=== PATIENT | female | born 1985 | race Caucasian/White ===

== ENCOUNTER 2017-12-26 22:08 | Emergency (ER) | payer OTHER ==
[2017-12-27 05:10] VITALS: BP 100/57; PULSE 82; O2SAT 100
--- NOTE | 2017-12-27 08:57 | OBHP ---
Datetime: 12/26/2017 11:30 IP Adm Impression: , intrauterine ; No Active Labor IP Admit Plan: Discharge home Admit Comment, IP Provider: 32 y/o Kazakh speaking female at 39 weeks GA w/ c/o suprapubic pain 4/10 in severity. She denies nausea, vomiting, vaginal bleeding, VFL. She is visiting from [facility], and has been in the [place] for 3 [place], and does not have any records with her. PMD: unknown pmhx:none OBGYN hx: , 1 miscarriage, 3 at term. Patient unsure when LMP was. past surgical hx: none social hx: denies etoh, tobacco, recreational drug use home meds: none Allergies: none O: Afebrile Heart: RRR Chest: CTA B/L Abd: Soft, NT ,BS- present FHR: 140 Grade I [place]: irregular SVE: 0 cm cervical dilation Assessment: 32 y/o at 39.1 wk intrauterine Patient is not in active labor, cervix closed, no vaginal bleeding or fluid loss. Plan: Monitor FHR PO fluids; patient refused IV fluids Patients sx improved Patient advised of ER precautions: monitor for regular contractions, vaginal bleeding, fluid loss, decreased movement, fevers, severe headache Patient given clinic information and advised to follow up d/c to home Gali Greene, PGY I Addendum: I saw examined patient up presentation. No evidence of labor at this time. heart tracing cat egory 1. Patient discharged home with labor precautions. Pelvic Type - PN: Adequate Extremities - PN: Normal Abdomen - PN: Normal Back - PN: Not Done Breast - PN: Not Done Lungs - PN: Normal Heart - PN: Normal Thyroid - PN: Normal Neurologic - PN: Normal HEENT - PN: Normal General - PN: Normal Weight - Estimated: unknown FHR - Baseline A Provider: 140 Gestation - Est Wks by US: 39.1 Vital Signs Provider: Reviewed; Within Normal Limits IP Chief Complaint: Maternal discomfort NICHD Variability Prov Fetus A: Moderate 6-25bpm NICHD Accel Fetus A IP Provider: 15X15 FHR Category Provider Fetus A: Category I NICHD Decel Fetus A IP Provider: None Dilatation, Provider: 0 Station, Provider: -4 Genitourinary Exam: Normal DTRs - PN: Not Done
== END 2017-12-27 00:05 | disposition home or self-care (01) ==
LOC: H.EROB2 22:08
DX: O47.1 False labor at or after 37 completed weeks of gestation (principal); O26.93 Pregnancy related conditions, unspecified, third trimester; R10.2 Pelvic and perineal pain; Z3A.39 39 weeks gestation of pregnancy

== ENCOUNTER 2018-01-04 11:20 | Inpatient (IN) | payer MEDICAID ==
[2018-01-04 13:11] VITALS: BMI 26.2
[2018-01-04 14:02] LABS: BASO % 0.3 % (0.0-2.0); EOS % 0.6 % (0.0-4.0); HEMOGLOBIN 13.4 g/dL (12.0-16.0); LYMPH # 1.4 K/uL (1.0-4.3); LYMPH % 18.5 % (20.0-40.0); MEAN CELL VOLUME 94.6 fl (81.0-99.0); MEAN CORPUSCULAR HEMOGLOBIN 32.6 pg (27.0-31.0); MEAN CORPUSCULAR HGB CONC 34.5 g/dL (33.0-37.0); MEAN PLATELET VOLUME 8.1 fl (7.2-11.7); MONO # 0.5 K/uL (0.0-0.8); MONO % 7.4 % (0.0-10.0); NEUT # 5.4 K/uL (1.8-7.0); NEUT % 73.2 % (50.0-75.0); RBC 4.1 Mil/uL (3.80-5.20); RED CELL DISTRIBUTION WIDTH 12.7 % (11.5-14.5); WHITE BLOOD COUNT 7.4 K/uL (4.8-10.8)
[2018-01-04] MEDS ORDERED: Lactated Ringer's 1,000 ML IV ONE (14:17)
[2018-01-04] MEDS ORDERED: Lactated Ringer's 1,000 ML IV SCH (14:30)
[2018-01-04] MEDS ORDERED: Oxytocin 30 UNIT 30 UNITS/500 ML BAG IV ONE (14:31)
--- NOTE | 2018-01-04 14:37 | OBADHP ---
Datetime: 01/04/2018 13:07 Admit Comment, IP Provider: 32 y/o , 38.2 wks based on LMP of 04/11/18 and OCTAVIO of 01/16/18, prese nts to [facility] complaining of increasing abdominal contractions. Patient came from [facility] 1 month ago. She came to [facility] on 12/26/17 when cervix was closed. Patient reports increasing contractions since 9PM yes terday, every 10 minutes, with pressur and pain. Reports scant brownish/red vaginal bleeding this mor naga which stopped. Denies any LOF. Endorses good movements. Last sexual activity 1 month ago. Care: In [facility], Has incomplete records. PMHx: Denies PSHx: Denies Allergies: Denies F/H: Mother-HTN SocialHx: Denies alcohol/tobacco/drugs PE General: Mild distress Chest: RRR, S1S2 present, No murmur Lungs: CTA B/L, good air movement ABdomen: Gravid, Nontender Ext: No pedal edema, calf tenderness SVE: 4/60%/-3 A/P: 32 y/o , 38.2 wks based on LMP of 04/11/18 and OCTAVIO of 01/16/18, presents to [facility] complaini ng of increasing abdominal contractions. - Latent stage of labor - Cervix 4cm/60/-3 - EFM: NST reactive, as above - [place]: contractions Q5 mins - CBC, CMP, HIV, RPR, HbsAg, and GBS culture - Bedside US for dating, presentation and placenta - Recheck in 1 hr Dominick Ramesh, PGY1 OB Hospitalist on-call. Pt was seen and translating machine was used for Hx. will observe labor p rogress; check labs; if discharged home f/u 1w At 14:05pm I re-examined : Active labor 6cm/80%/-1 cephalic admit to L_D; anticiapte Sono 3100g; cpe; fundal placenta Pelvic Type - PN: Adequate Extremities - PN: Normal Abdomen - PN: Normal Lungs - PN: Normal Heart - PN: Normal General - PN: Normal Presentation-Admit: Vertex FHR - Baseline A Provider: 140 Membranes, Provider: Sander Comments, ACOG Physical Exam: General: Mild distress Chest: RRR, S1S2 present, No murmur Lungs: CTA B/L, good air movement ABdomen: Gravid, Nontender Ext: No pedal edema, calf tenderness SVE: 4/60%/-3 Neuro: AAO x3 Pool Provider: Negative Vital Signs Provider: Reviewed; Within Normal Limits IP Chief Complaint: Uterine contractions; Maternal discomfort NICHD Variability Prov Fetus A: Moderate 6-25bpm NICHD Accel Fetus A IP Provider: 15X15 FHR Category Provider Fetus A: Category I NICHD Decel Fetus A IP Provider: None Dilatation, Provider: 4 Effacement, Provider: 60 Station, Provider: -3 Genitourinary Exam: Normal EGA AdmitDate IP: 38.2 IP Adm Impression: Term, intrauterine ; Intact Membranes IP Admit Plan: Observation/Evaluation Datetime: 12/26/2017 11:30 Back - PN: Not Done Breast - PN: Not Done Thyroid - PN: Normal Neurologic - PN: Normal HEENT - PN: Normal Weight - Estimated: unknown Gestation - Est Wks by US: 39.1 DTRs - PN: Not Done
--- NOTE | 2018-01-04 14:43 | US ---
Date of service: 01/04/2018 PROCEDURE: OB Pelvic Ultrasound HISTORY: 38, wks Real-time transabdominal ultrasound examination of the 3rd trimester fetus was performed. Exam is limited for anatomy and is only being performed for presentation, weight, and placental location as per the referring physician. COMPARISON: None available. FINDINGS: UTERUS: Gestational sac: Single live intrauterine gestation. Heart rate: 159 bpm. age (Ultrasound estimated): 37 weeks and Sol-gestational hemorrhage: 3 days Date of delivery (Ultrasound estimated) : 01/22/2018 CERVIX: Measures 3.7 cm. Long and closed. No cervical abnormality seen. Right and left ovary were not adequately identified on the images presented. RIGHT OVARY: Not seen. LEFT OVARY: Not seen. FREE FLUID: No free-fluid. OTHER FINDINGS: BPD is 92 millimeters, head circumference is 327 millimeters, abdominal circumference is 330 millimeters, femur length is 74 millimeters. Estimated weight is 3173 grams. Placenta is fundal in location without placenta previa. Cephalic presentation is noted. IMPRESSION: Single live intrauterine gestation with an estimated gestational age of 37 weeks and 3 days based on this ultrasound exam. Estimated date of delivery is 01/22/2018. Please see above. Exam was only performed for limited evaluation as per the referring physician.
[2018-01-04] MEDS ORDERED: OXYTOCIN/0.9 % NS 20 UNIT/1,000 ML BAG IV SCH ×2 (14:45→18:00)
[2018-01-04] MEDS ORDERED: Oxycodone/Acetaminophen 5/325 mg Tab PO PRN ×2 (15:53→18:00)
[2018-01-04] MEDS ORDERED: Benzocaine/Menthol SPRAY TOP PRN ×2 (15:53→18:00)
--- NOTE | 2018-01-04 19:22 | OBDS ---
DELIVERY PERSONNEL Delivery Doctor: Dominik Carrion DO Billing Control Clerk: Nori Villatoro RN Resident: Dr. rivera MATERNAL INFORMATION Delivery Anesthesia: None Medications in Delivery: pitocin 30units in 500ml LR Estimated Blood Loss (ml): 100 Placenta Cultured: No Maternal Complications: None Provider Comments: of live female with 9 at 1 min and 5 mins. Infant was crying spontaneously and bulb suctioned and placed on mother for skin to skin. Umbilical cord blood colleceted and sent. Placenta delivered intact spontansously at 15:42. Uetrus firm and appropriately hemostatic without complications. EBL 200cc Patient and baby remains stable Findings discussed with Dr. Sheyla Rivera, PGY1 LABOR SUMMARY EDC: 01/16/2018 00:00 No. Babies in Womb: 1 Attempted: No Labor Anesthesia: None LABOR INFORMATION Reason for Induction: Not Applicable Onset of Labor: 01/03/2018 22:00 Complete Dilatation: 01/04/2018 15:10 Oxytocin: N/A Group B Beta Strep: Not Done Antibiotics # of Doses: n/a Antibiotics Time of Last Dose: n/a Steroids Given: None Reason Steroids Not Administered: Not Applicable MEMBRANES Membranes Rupture Method: Spontaneous Rupture of Membranes: 01/04/2018 15:10 Length of Rupture (hrs): 0.33 Amniotic Fluid Color: Clear Amniotic Fluid Amount: Moderate Amniotic Fluid Odor: Normal STAGES OF LABOR Stage 1 hrs: 17 Stage 1 min: 10 Stage 2 hrs: 0 Stage 2 min: 20 Stage 3 hrs: 0 Stage 3 min: 12 Total Time in Labor hrs: 17 Total Time in Labor min: 42 VAGINAL DELIVERY Episiotomy: None Laceration Extension: N/A Laceration Type: None Laceration Repair: Not Applicable Initial Vag Sponge Count: 5 laps with ring, 10 sponges Final Vag Sponge Count: 5 laps with ring, 10 sponges Initial Vag Sharps Count: 0 Final Vag Sharps Count: 0 Sponge Count Correct: Yes Sharps Count Correct: Yes Count Comment: count correct and acknowledged by MD BABY A INFORMATION Infant Delivery Date/Time: 01/04/2018 15:30 Method of Delivery: Vaginal Born in Route : No : N/A Forceps: N/A Vacuum Extraction: N/A Shoulder Dystocia : No SHOULDER DYSTOCIA BABY A Delivery Date/Time: 01/04/2018 15:30 PRESENTATION/POSITION BABY A Presentation: Cephalic Cephalic Presentation: Vertex Breech Presentation: N/A PLACENTA INFORMATION BABY A Placenta Delivery Time : 01/04/2018 15:42 Placenta Method of Delivery: Spontaneous Placenta Status: Delivered SCORES BABY A Heart Rate 1 min: >100 bpm Resp Effort 1 min: Good Cry Reflex Irritability 1 min: Cough or Sneeze or Pulls Away Muscle Tone 1 min: Active Motion Color 1 min: Body [place], Extremities Blue Resuscitation Effort 1 min: N/A SCORE 1 MIN: 9 Heart Rate 5 min: >100 bpm Resp Effort 5 min: Good Cry Reflex Irritability 5 min: Cough or Sneeze or Pulls Away Muscle Tone 5 min: Active Motion Color 5 min: Body [place], Extremities Blue Resuscitation Effort 5 min: N/A SCORE 5 MIN: 9 INFANT INFORMATION BABY A Gestational Age at Delivery: 38.2 Gestational Status: Term Outcome : Liveborn Condition : Stable Sex: Female IDENTIFICATION/MEDS BABY A ID Band Number: [id number] Vitamin K Given : Not Given Erythromycin Given: Not Given WEIGHT/LENGTH BABY A Infant Birthweight (gms): 2995 Infant Weight (lb): 6 Infant Weight (oz): 10 CORD INFORMATION BABY A No. Cord Vessels: 3 Nuchal Cord : N/A Cord Blood Taken: Yes Suction: None ASSESSMENT BABY A Infant Complications: None Physical Findings at Delivery: Within Normal Limits Infant Respirations: Appears Normal Shearing Machine Feeder/ALS Called : No Care By: Dr. Delatorre Transferred To: Remains with Mother
--- NOTE | 2018-01-04 19:23 | OBDS ---
DELIVERY PERSONNEL Delivery Doctor: Dominik Carrion DO Dust Collector: Nori Villatoro RN Resident: Dr. rivera MATERNAL INFORMATION Delivery Anesthesia: None Medications in Delivery: pitocin 30units in 500ml LR Estimated Blood Loss (ml): 100 Placenta Cultured: No Maternal Complications: None Provider Comments: of live female with 9 at 1 min and 5 mins. Infant was crying spontaneously and bulb suctioned and placed on mother for skin to skin. Umbilical cord blood colleceted and sent. Placenta delivered intact spontansously at 15:42. Uetrus firm and appropriately hemostatic without complications. EBL 200cc Patient and baby remains stable Findings discussed with Dr. Sheyla Rivera, PGY1 Ob hospitaliston-call. I attended [facility] LABOR SUMMARY EDC: 01/16/2018 00:00 EDC: 01/02/2018 00:00 No. Babies in Womb: 1 Attempted: No Labor Anesthesia: None LABOR INFORMATION Reason for Induction: Not Applicable Onset of Labor: 01/03/2018 22:00 Onset of Labor: 01/03/2018 22:00 Complete Dilatation: 01/04/2018 15:10 Oxytocin: N/A Group B Beta Strep: Not Done Antibiotics # of Doses: n/a Antibiotics Time of Last Dose: n/a Steroids Given: None Reason Steroids Not Administered: Not Applicable MEMBRANES Membranes Rupture Method: Spontaneous Rupture of Membranes: 01/04/2018 15:10 Length of Rupture (hrs): 0.33 Amniotic Fluid Color: Clear Amniotic Fluid Amount: Moderate Amniotic Fluid Odor: Normal STAGES OF LABOR Stage 1 hrs: 17 Stage 1 hrs: 17 Stage 1 min: 10 Stage 1 min: 10 Stage 2 hrs: 0 Stage 2 min: 20 Stage 3 hrs: 0 Stage 3 min: 12 Total Time in Labor hrs: 17 Total Time in Labor hrs: 17 Total Time in Labor min: 42 Total Time in Labor min: 42 VAGINAL DELIVERY Episiotomy: None Laceration Extension: N/A Laceration Type: None Laceration Repair: Not Applicable Initial Vag Sponge Count: 5 laps with ring, 10 sponges Final Vag Sponge Count: 5 laps with ring, 10 sponges Initial Vag Sharps Count: 0 Final Vag Sharps Count: 0 Sponge Count Correct: Yes Sharps Count Correct: Yes Count Comment: count correct and acknowledged by MD BABY A INFORMATION Infant Delivery Date/Time: 01/04/2018 15:30 Method of Delivery: Vaginal Born in Route : No : N/A Forceps: N/A Vacuum Extraction: N/A Shoulder Dystocia : No SHOULDER DYSTOCIA BABY A Delivery Date/Time: 01/04/2018 15:30 PRESENTATION/POSITION BABY A Presentation: Cephalic Presentation: Cephalic Presentation: Cephalic Cephalic Presentation: Vertex Breech Presentation: N/A PLACENTA INFORMATION BABY A Placenta Delivery Time : 01/04/2018 15:42 Placenta Method of Delivery: Spontaneous Placenta Method of Delivery: Spontaneous Placenta Status: Delivered Placenta Status: Delivered SCORES BABY A Heart Rate 1 min: >100 bpm Resp Effort 1 min: Good Cry Reflex Irritability 1 min: Cough or Sneeze or Pulls Away Muscle Tone 1 min: Active Motion Color 1 min: Body [place], Extremities Blue Resuscitation Effort 1 min: N/A SCORE 1 MIN: 9 Heart Rate 5 min: >100 bpm Resp Effort 5 min: Good Cry Reflex Irritability 5 min: Cough or Sneeze or Pulls Away Muscle Tone 5 min: Active Motion Color 5 min: Body [place], Extremities Blue Resuscitation Effort 5 min: N/A SCORE 5 MIN: 9 INFANT INFORMATION BABY A Gestational Age at Delivery: 38.2 Gestational Status: Term Infant Outcome : Liveborn Infant Condition : Stable Infant Sex: Female IDENTIFICATION/MEDS BABY A ID Band Number: [id number] Vitamin K Given : Not Given Erythromycin Given: Not Given WEIGHT/LENGTH BABY A Infant Birthweight (gms): 2995 Infant Weight (lb): 6 Infant Weight (oz): 10 CORD INFORMATION BABY A No. Cord Vessels: 3 Nuchal Cord : N/A Cord Blood Taken: Yes Suction: None ASSESSMENT BABY A Complications: None Physical Findings at Delivery: Within Normal Limits Respirations: Appears Normal Receiver/Laborer/ALS Called : No Care By: Dr. Delatorre Transferred To: Remains with Mother
[2018-01-04 20:55] LABS: RAPID PLASMA REAGIN NONREACTIVE (NONREACTIVE)
[2018-01-05 04:57] LABS: BASO % 0.2 % (0.0-2.0); EOS # 0.1 K/uL (0.0-0.7); EOS % 1.1 % (0.0-4.0); HEMOGLOBIN 11.7 g/dL (12.0-16.0); LYMPH # 1.7 K/uL (1.0-4.3); LYMPH % 16.8 % (20.0-40.0); MEAN CELL VOLUME 95.3 fl (81.0-99.0); MEAN CORPUSCULAR HEMOGLOBIN 33.1 pg (27.0-31.0); MEAN CORPUSCULAR HGB CONC 34.7 g/dL (33.0-37.0); MONO # 0.9 K/uL (0.0-0.8); MONO % 8.9 % (0.0-10.0); NEUT # 7.2 K/uL (1.8-7.0); NRBC % 0.1 % (0.0-0.0); RBC 3.53 Mil/uL (3.80-5.20); RED CELL DISTRIBUTION WIDTH 12.9 % (11.5-14.5); WHITE BLOOD COUNT 9.9 K/uL (4.8-10.8)
[2018-01-05 08:14] LABS: HEPATITIS B SURFACE AG Negative (NEGATIVE)
--- NOTE | 2018-01-05 19:29 | OBPPN ---
Datetime: 01/05/2018 11:01 PP Pain Prov: Within normal limits PP Nausea Prov: Denies PP Flatus Prov: Yes PP BM Prov: No PP Heart Prov: Normal PP Lungs Prov: Normal PP Abdomen/Uterus Prov: Normal PP Lochia Prov: Normal PP Vulva/Perineum Prov: Normal PP CVA Tenderness Prov: Normal PP Extremities Prov: Normal PP C/S Incision Prov: Not Applicable PP Progress Prov: Normal PP Impression Prov: Normal progression PP Plan Prov: Continue present management PP Progress Note Prov: S: Patient seen and examined this morning. NAD, normal progression , s/p SNVD on 01/04/18. Ambulating, tolerating PO intake, voiding freely, pain is well controlled, nora ast feeding the baby, voiding freely. No BM. Denies pain or bleeding. O: VS: stable GEN: NAD Cardio: s1s2, no M/G/R Resp: clear breath sounds b/l Abdomen: BS+, NT, Uterus is firm and at the level of the umbilicus. EXT: No edema, calves nontender NEURO/PSYCHI: AAOx3, no grossly focal deficit, preserved affect and mood. A/P: 32 y/o F. , s/p SNVD, PPD 1, healthy female NB - C/w Breast feeding, ambulation and PO intake - Normal PP progression - C/w current management - pain managment --- JPATEL, PGY2 IP PP Procedures: None (Annotations: Data stored by CPN on behalf of user) Vital Signs Provider PP: Reviewed
[2018-01-06 19:03] VITALS: BP 105/72; PULSE 70; RESP 20; TEMP 98; O2SAT 97
--- NOTE | 2018-01-06 22:01 | OBPPN ---
Datetime: 01/06/2018 07:10 PP Pain Prov: Within normal limits PP Nausea Prov: Denies PP Flatus Prov: Yes PP BM Prov: Yes PP Breasts Prov: Normal PP Heart Prov: Normal PP Lungs Prov: Normal PP Abdomen/Uterus Prov: Normal PP Lochia Prov: Normal PP Vulva/Perineum Prov: Normal PP CVA Tenderness Prov: Normal PP Extremities Prov: Normal PP C/S Incision Prov: Not Applicable PP Progress Prov: Normal PP Impression Prov: Normal progression PP Plan Prov: Continue present management; Discharge PP Progress Note Prov: Patient seen and examined at the bedside in morning. Reports passing gas and stool. Tolerating PO diet.Lochia like menses. Patient is without difficulties. She has no complaints this AM. VSS, Afebrile Gen: NAD Lungs: CTA bilaterally CVS: RRR, S1, S2 WNL, no murmurs. Abd: ND, +BS, appropriated tenderness, fundus firm at umbilical level. Ext: No edema, negative calf tenderness. Neuro/psych: AAOx3 A/P: 32 y/o female at 38.2 WK GA PPD2 -Encourage ambulation -Encourage -Diet as tolerated -Ibuprofen 600 mg for pain mgmt -discharge today Gali Greene PGY-I We attending addendum: Patient seen and examined by me. Agree with above assessment and plan. Vital Signs Provider PP: Reviewed; Within Normal Limits
--- NOTE | 2018-01-06 22:03 | OBDCSUM ---
Datetime: 01/06/2018 08:23 Disch Instr Activity: Normal activity Discharge Time: 01/06/2018 14:35
== END 2018-01-06 14:35 | disposition home or self-care (01) | DRG 775 ==
LOC: H.EROB2 11:20 → H.L&D 14:17 → H.OB/GYN 18:00
PROVIDERS: ADMIT Obstetrics & Gynecology; ATTEND Obstetrics & Gynecology
PROC: 10E0XZZ Delivery of Products of Conception, External Approach (ICD-10-PCS; principal; 2018-01-04)
PROC: 4A1HXCZ Monitoring of Products of Conception, Cardiac Rate, External Approach (ICD-10-PCS; 2018-01-04)
DX: O80 Encounter for full-term uncomplicated delivery (principal); Z37.0 Single live birth; Z3A.38 38 weeks gestation of pregnancy